=== PATIENT | female | born 1985 | race African-American/Black ===

== ENCOUNTER 2017-07-31 21:10 | Emergency (ER) | payer OTHER ==
--- NOTE | 2017-07-31 21:17 | PDOC ---
History of Present Illness - General History Source: Patient Exam Limitations: No Limitations - History of Present Illness Initial Comments: 07/31/17 22:13 The patient is a 31 year old female, with a significant past medical history of anxiety and depression, who presents to the emergency department with, 4 days of right sided chest pain. She describes her pain as radiating to the right armpit. She reports that her pain worsened today. She denies recent fevers, chills, headache or dizziness. She denies recent nausea, vomit, diarrhea or constipation. She denies recent dysuria, frequency, urgency or hematuria. She denies recent chest pain or shortness of breath. Past surgical history: None reported. Social history: Nonsmoker. Denies EtOH use and recreational drug use. <Torito Crum - Last Filed: 07/31/17 22:13> <Mariel Waters - Last Filed: 08/01/17 03:40> - General Chief Complaint: Pain Stated Complaint: RIGHT ARMPIT & RIGHT UPPER CHEST PAIN Time Seen by Provider: 07/31/17 21:17 Past History <Torito Crum - Last Filed: 07/31/17 22:13> - Reproductive History (#): 0 - Immunization History Immunization Up to Date: Yes - Suicide/Smoking/Psychosocial Hx Smoking Status: No Smoking History: Never smoked Have you smoked in the past 12 months: No Number of Cigarettes Smoked Daily: 0 Hx Alcohol Use: No Drug/Substance Use Hx: No Substance Use Type: None <Mariel Waters - Last Filed: 08/01/17 03:40> - Past Medical History Allergies/Adverse Reactions: Allergies Allergy/AdvReac Type Severity Reaction Status Date / Time azithromycin [From Zithromax] Allergy Intermediate Rash Verified 07/21/15 15:24 shellfish derived Allergy Intermediate Hives Verified 07/31/17 21:25 Home Medications: Ambulatory Orders Citalopram Hydrobromide [Celexa] 20 mg PO DAILY 02/03/13 Methocarbamol [Robaxin -] 500 mg PO TID #30 tablet 07/31/17 Ranitidine HCl [Zantac 75] 75 mg PO ONCE 07/31/17 Review of Systems - Review of Systems Able to Perform ROS?: Yes Comments:: 07/31/17 22:13 GENERAL/CONSTITUTIONAL: No fever or chills. No weakness. HEAD, EYES, EARS, NOSE AND THROAT: No change in vision. No ear pain or discharge. No sore throat. CARDIOVASCULAR: No shortness of breath. RESPIRATORY: No cough, wheezing, or hemoptysis. GASTROINTESTINAL: No nausea, vomiting, diarrhea or constipation. GENITOURINARY: No dysuria, frequency, or change in urination. MUSCULOSKELETAL: +Right sided chest pain. No joint or muscle swelling. No neck or back pain. SKIN: No rash NEUROLOGIC: No headache, vertigo, loss of consciousness, or change in strength/ sensation. ENDOCRINE: No increased thirst. No abnormal weight change. HEMATOLOGIC/LYMPHATIC: No anemia, easy bleeding, or history of blood clots. ALLERGIC/IMMUNOLOGIC: No hives or skin allergy. All Other Systems: Reviewed and Negative <Torito Crum - Last Filed: 07/31/17 22:13> *Physical Exam - Vital Signs Last Vital Signs Temp Pulse Resp BP Pulse Ox 98.8 F 95 H 16 137/77 100 07/31/17 21:16 07/31/17 21:16 07/31/17 21:16 07/31/17 21:16 07/31/17 21:16 - Physical Exam Comments: 07/31/17 22:14 GENERAL: Awake, alert, and fully oriented, in no acute distress HEAD: No signs of trauma EYES: PERRLA, EOMI, sclera anicteric, conjunctiva clear ENT: Auricles normal inspection, hearing grossly normal, nares patent, oropharynx clear without exudates. Moist mucosa NECK: Normal ROM, supple, no lymphadenopathy, JVD, or masses LUNGS: Breath sounds equal, clear to auscultation bilaterally. No wheezes, and no crackles HEART: Regular rate and rhythm, normal S1 and S2, no murmurs, rubs or gallops ABDOMEN: Soft, nontender, normoactive bowel sounds. No guarding, no rebound. No masses EXTREMITIES: Normal range of motion, no edema. No clubbing or cyanosis. No cords, erythema, or tenderness NEUROLOGICAL: Cranial nerves II through XII grossly intact. Normal speech, normal gait SKIN: Warm, Dry, normal turgor, no rashes or lesions noted. <Torito Crum - Last Filed: 07/31/17 22:13> ED Treatment Course - Medications Given in the ED: ED Medications Discontinued Medications Generic Name Dose Route Start Last Admin Trade Name Shirin PRN Reason Stop Dose Admin Ibuprofen 600 mg 07/31/17 21:46 07/31/17 21:48 Motrin - PO 07/31/17 21:47 600 mg ONCE ONE Administration Methocarbamol 1,000 mg 07/31/17 21:46 07/31/17 21:48 Robaxin - PO 07/31/17 21:47 1,000 mg ONCE ONE Administration <Torito Crum - Last Filed: 07/31/17 22:13> Medical Decision Making - Medical Decision Making 08/01/17 03:38 Pt has Right shoulder and chest pain. 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 Exam is normal. SHe has no axillary nodes or abscesses, she has a normal EKG and normal CXR. Normal exam. SHe has FROM of bilateral arms and no signs of rotator cuff tear etc. Pt has improvement of pain with NDSAIDS and Robaxin in the ER. Home with the same. Pt admised to lose weight. She is 150lbs and acknowledges that she needs to lose 50 lbs to start. <Mariel Waters - Last Filed: 08/01/17 03:40> *DC/Admit/Observation/Transfer - Attestations Scribe Attestion: 07/31/17 22:14 Documentation prepared by Torito Crum, acting as medical laboratory technical officer for Mariel Waters MD. <Torito Crum - Last Filed: 07/31/17 22:13> - Discharge Dispostion Admit: No <Mariel Waters - Last Filed: 08/01/17 03:40> Diagnosis at time of Disposition: Musculoskeletal chest pain - Discharge Dispostion Disposition: HOME Condition at time of disposition: Stable - Prescriptions Prescriptions: Methocarbamol [Robaxin -] 500 mg PO TID #30 tablet - Referrals Referrals: Yesy Metzger MD [Primary Care Provider] - - Patient Instructions Printed Discharge Instructions: DI for Musculoskeletal Pain - Post Discharge Activity
[2017-07-31 21:34] VITALS: BP 137/77; PULSE 95; TEMP 98.8; BMI 40.6
[2017-07-31] MEDS ORDERED: IBUPROFEN 600 MG TABLET (FP) PO ONE ×2 (21:46→21:47)
[2017-07-31] MEDS ORDERED: METHOCARBAMOL 500 MG TABLET PO ONE (21:46)
[2017-07-31] MEDS ORDERED: METHOCARBAMOL 500 MG TABLET ONE (21:47)
--- NOTE | 2017-08-01 08:18 | EKG ---
Test Reason : Blood Pressure : / mmHG Vent. Rate : 082 BPM Atrial Rate : 082 BPM P-R Int : 162 ms QRS Dur : 082 ms QT Int : 380 ms P-R-T Axes : 044 057 053 degrees QTc Int : 443 ms NORMAL SINUS RHYTHM NORMAL ECG WHEN COMPARED WITH ECG OF 18-JAN-2011 00:23, NO SIGNIFICANT CHANGE WAS FOUND Confirmed by CLEMENTINA CHAU MD ([id number]) on 08/01/2017 8:18:40 AM Referred By: HAILEE Confirmed By:CLEMENTINA CHAU MD
== END 2017-07-31 23:43 | disposition home or self-care (01) ==
LOC: FER 21:10
DX: M79.1 Myalgia (principal); F41.8 Other specified anxiety disorders
CPT/HCPCS: 71046-TC-FY; 73030-TC-RT-FY; 93005; 99282-25